=== PATIENT | female | born 1960 | race Hispanic/Latino ===

== ENCOUNTER → 2024-04-09 | Outpatient (CLI) | payer OTHER | LOC: M SOG 12:39 | PROVIDERS: ATTEND Neuromusculoskeletal Medicine, Sports Medicine | DX: M25.532 Pain in left wrist (principal); M25.531 Pain in right wrist ==

== ENCOUNTER 2024-05-13 06:07 | Day surgery (SDC) | payer OTHER ==
[~2024-05-13] VITALS: Ht 162.6 cm; Wt 83.6 kg
[~2024-05-13 06:07] MED LIST: ALBU8.5H INH; ARMO1TAB PO; BUDE10.22 INH; CETI-24 PO; ELID1CRE11 TOP; EPIN0.3I11 IM; EZET10TA21 PO; HAIRTAB15 PO; HYDR12.55 PO; LIDO1PAD TOP; LORA-930 PO; PRAV10TA3 PO; REFR0.5D8 OU; TELM1TAB35 PO; THERTAB52 PO; TIRZ5PEN SC; XALA0.007 OU
[2024-05-13] MEDS ORDERED: LR 1,000 ML IV SCH (06:20)
[2024-05-13] MEDS ORDERED: propofoL 200 MG/20 ML VIAL As Ordered ONE (06:52)
[2024-05-13] MEDS ORDERED: ONDANSETRON 4MG 2ML VIAL As Ordered ONE (06:52)
[2024-05-13] MEDS ORDERED: KETOROLAC 30 MG/ML 1ML VIAL As Ordered ONE (06:52)
[2024-05-13] MEDS ORDERED: LIDOCAINE 2% 100MG/5ML SDV (FOR ANES.) As Ordered ONE (06:52)
[2024-05-13] MEDS ORDERED: fentaNYL 100 MCG/2 ML INJECTION As Ordered ONE (06:59)
[2024-05-13] MEDS ORDERED: MIDAZOLAM INJ 2MG/2ML VIAL As Ordered ONE (07:00)
[2024-05-13] MEDS ORDERED: ceFAZolin SODIUM 2 GM VIAL As Ordered ONE (07:35)
[2024-05-13] MEDS: ceFAZolin SOD 2 GM IV ONCE IV ONE (07:41)
[2024-05-13] MEDS ORDERED: ACETAMINOPHEN 1000MG/100ML IV BAG As Ordered ONE (07:44)
[2024-05-13 08:14] VITALS: BP 114/58; TEMP 96.6; O2SAT 94
[2024-05-13] MEDS ORDERED: SUZE50TA PO (08:24)
== END 2024-05-13 08:50 | disposition home or self-care (01) ==
LOC: M SDC 06:07
PROVIDERS: ATTEND Neuromusculoskeletal Medicine, Sports Medicine
DX: G56.01 Carpal tunnel syndrome, right upper limb (principal); I10 Essential (primary) hypertension; E11.9 Type 2 diabetes mellitus without complications; E78.5 Hyperlipidemia, unspecified; E03.9 Hypothyroidism, unspecified; K21.9 Gastro-esophageal reflux disease without esophagitis; F41.9 Anxiety disorder, unspecified; F32.A Depression, unspecified; F43.10 Post-traumatic stress disorder, unspecified; Z79.51 Long term (current) use of inhaled steroids; Z79.899 Other long term (current) drug therapy; J45.909 Unspecified asthma, uncomplicated; Z88.0 Allergy status to penicillin; Z88.5 Allergy status to narcotic agent; Z88.8 Allergy status to other drugs, medicaments and biological substances
CPT/HCPCS: 64721; 93005; J0665; J0690; J1100; J1885; J2250; J2405; J3010

== ENCOUNTER 2024-05-27 06:06 | Day surgery (SDC) | payer OTHER ==
[~2024-05-27] VITALS: Ht 162.6 cm; Wt 86.2 kg
[~2024-05-27 06:06] MED LIST changes: +SUZE50TA PO
[2024-05-27] MEDS ORDERED: LIDOCAINE 2% 100MG/5ML SDV (FOR ANES.) As Ordered ONE (06:11)
[2024-05-27] MEDS ORDERED: propofoL 200 MG/20 ML VIAL As Ordered ONE (06:11)
[2024-05-27] MEDS ORDERED: MIDAZOLAM INJ 2MG/2ML VIAL As Ordered ONE (06:12)
[2024-05-27] MEDS ORDERED: KETOROLAC 30 MG/ML 1ML VIAL As Ordered ONE (06:14)
[2024-05-27] MEDS ORDERED: ONDANSETRON 4MG 2ML VIAL As Ordered ONE (06:14)
[2024-05-27] MEDS ORDERED: SYNT50TA PO (06:43)
[2024-05-27] MEDS: LR 1,000 ML IV SCH (07:06)
[2024-05-27] MEDS ORDERED: fentaNYL 100 MCG/2 ML INJECTION As Ordered ONE (07:18)
[2024-05-27] MEDS ORDERED: GLYCOPYRROLATE INJ 0.2 MG/ML 2 ML VIAL As Ordered ONE (07:20)
[2024-05-27] MEDS: ceFAZolin SODIUM 2 GM in DEXTROSE 5% (D5W) ADV/MINI-BAG 50 ML IV ONE (07:39)
[2024-05-27] MEDS ORDERED: ACETAMINOPHEN 1000MG/100ML IV BAG As Ordered ONE (07:48)
[2024-05-27] MEDS ORDERED: ePHEDrine SULFATE 25 MG/5 ML(5MG/ML) SYRINGE As Ordered ONE (07:50)
[2024-05-27] MEDS: LIDOCAINE 1% SDV 30ML VIAL As Ordered ONE (08:03)
[2024-05-27] MEDS ORDERED: HYDROMORPHONE HCL 0.5 MG/ 0.5 ML SYRINGE IV PRN (08:15)
[2024-05-27] MEDS ORDERED: fentaNYL 100 MCG/2 ML INJECTION IV PRN (08:15)
[2024-05-27] MEDS ORDERED: LR 1,000 ML IV SCH (08:15)
[2024-05-27] MEDS ORDERED: ONDANSETRON 4MG 2ML VIAL IV PRN (08:15)
[2024-05-27] MEDS ORDERED: oxyCODONE 5MG TAB PO PRN (08:15)
[2024-05-27 09:11] VITALS: BP 129/58; TEMP 97.5; O2SAT 92
== END 2024-05-27 09:30 | disposition home or self-care (01) ==
LOC: M SDC 06:06
PROVIDERS: ATTEND Neuromusculoskeletal Medicine, Sports Medicine
DX: G56.02 Carpal tunnel syndrome, left upper limb (principal); I10 Essential (primary) hypertension; E11.9 Type 2 diabetes mellitus without complications; E78.5 Hyperlipidemia, unspecified; J45.909 Unspecified asthma, uncomplicated; F41.9 Anxiety disorder, unspecified; F32.A Depression, unspecified; F43.10 Post-traumatic stress disorder, unspecified; E03.9 Hypothyroidism, unspecified; K21.9 Gastro-esophageal reflux disease without esophagitis; G47.33 Obstructive sleep apnea (adult) (pediatric); Z79.51 Long term (current) use of inhaled steroids; Z79.899 Other long term (current) drug therapy; Z88.5 Allergy status to narcotic agent; Z88.1 Allergy status to other antibiotic agents; Z88.8 Allergy status to other drugs, medicaments and biological substances
CPT/HCPCS: 64721; J0131; J0690; J1100; J1596; J1885; J2250; J2405; J3010

== ENCOUNTER → 2024-12-01 | Outpatient (CLI) | payer OTHER ==
[~2024-12-01] MED LIST changes: -EZET10TA21 PO; +EZET10TA57 PO; -PRAV10TA3 PO; +PRAV10TA43 PO; +SYNT50TA PO
== END ==
LOC: M SOG 07:24
PROVIDERS: ATTEND Neuromusculoskeletal Medicine, Sports Medicine
DX: M25.541 Pain in joints of right hand (principal); M25.542 Pain in joints of left hand; M19.041 Primary osteoarthritis, right hand; M19.042 Primary osteoarthritis, left hand

== ENCOUNTER → 2024-12-03 | Outpatient (CLI) | payer OTHER | LOC: M PLAIMG 08:55 | PROVIDERS: ATTEND Physician Assistant | DX: J32.8 Other chronic sinusitis (principal) ==

== ENCOUNTER 2024-12-16 11:15 | Day surgery (SDC) | payer OTHER ==
[~2024-12-16] VITALS: Ht 162.6 cm; Wt 81.2 kg
[~2024-12-16 11:15] MED LIST changes: +ESTR62CR TOP; +FLON27.5; +LEVOTAB10 PO; +TIRZ7.5P SC
[2024-12-16] MEDS ORDERED: ONDANSETRON 4MG/2ML VIAL As Ordered ONE (11:25)
[2024-12-16] MEDS ORDERED: LIDOCAINE 2% 100 MG/5 ML SDV (FOR ANES.) As Ordered ONE (11:25)
[2024-12-16] MEDS ORDERED: dexAMETHasone 4 MG/ML 1 ML VIAL As Ordered ONE (11:25)
[2024-12-16] MEDS ORDERED: MIDAZOLAM INJ 2 MG/2 ML VIAL As Ordered ONE (11:29)
[2024-12-16] MEDS ORDERED: LR 1,000 ML IV SCH ×2 (11:35→13:55)
[2024-12-16] MEDS: ceFAZolin SODIUM 2 GM in DEXTROSE 5% (D5W) ADV/MINI-BAG 50 ML IV ONE (12:52)
[2024-12-16] MEDS ORDERED: ROCURONIUM BROMIDE 50MG/5ML VIAL As Ordered ONE (12:58)
[2024-12-16] MEDS ORDERED: SUGAMMADEX SODIUM 500 MG/5 ML VIAL As Ordered ONE (13:06)
[2024-12-16] MEDS ORDERED: ACETAMINOPHEN 1000MG/100ML IV BAG As Ordered ONE (13:12)
[2024-12-16] MEDS ORDERED: ALBUTEROL 6.7 GM INHALER **FOR ANES. CART/OMNICELL ONLY As Ordered ONE (13:19)
[2024-12-16] MEDS: LIDOCAINE 1% MDV 20 ML VIAL As Ordered ONE (13:20)
[2024-12-16] MEDS ORDERED: ONDANSETRON 4MG/2ML VIAL IV PRN (13:55)
[2024-12-16] MEDS ORDERED: HYDROMORPHONE HCL 0.5 MG/0.5 ML SYRINGE IV PRN (13:55)
[2024-12-16 14:53] VITALS: BP 112/60; TEMP 97.5; O2SAT 97
== END 2024-12-16 14:59 | disposition home or self-care (01) ==
LOC: M SDC 11:15
PROVIDERS: ATTEND Neuromusculoskeletal Medicine, Sports Medicine
DX: M65.311 Trigger thumb, right thumb (principal); M65.341 Trigger finger, right ring finger; E11.9 Type 2 diabetes mellitus without complications; I10 Essential (primary) hypertension; E03.9 Hypothyroidism, unspecified; E78.00 Pure hypercholesterolemia, unspecified; Z79.890 Hormone replacement therapy; Z79.85 Long-term (current) use of injectable non-insulin antidiabetic drugs; Z79.899 Other long term (current) drug therapy; G47.30 Sleep apnea, unspecified; Z90.710 Acquired absence of both cervix and uterus; Z88.8 Allergy status to other drugs, medicaments and biological substances; Z88.5 Allergy status to narcotic agent; Z88.1 Allergy status to other antibiotic agents; Z87.891 Personal history of nicotine dependence
CPT/HCPCS: 26055; J0131; J0688; J1100; J2250; J2405; J3010

== ENCOUNTER 2024-12-30 09:34 | Day surgery (SDC) | payer OTHER ==
[~2024-12-30] VITALS: Ht 162.6 cm; Wt 82.8 kg
[2024-12-30] MEDS: LR 1,000 ML IV SCH (10:25)
[2024-12-30] MEDS ORDERED: LIDOCAINE 2% 100 MG/5 ML SDV (FOR ANES.) As Ordered ONE (13:30)
[2024-12-30] MEDS: ceFAZolin SOD 2 GM IV ONCE IV ONE (14:28)
[2024-12-30] MEDS: LIDOCAINE 1% SDV 30 ML VIAL As Ordered ONE (14:28)
[2024-12-30 15:05] VITALS: BP 128/62; TEMP 97.5; O2SAT 97
== END 2024-12-30 15:13 | disposition home or self-care (01) ==
LOC: M SDC 09:34
PROVIDERS: ATTEND Neuromusculoskeletal Medicine, Sports Medicine
DX: M65.312 Trigger thumb, left thumb (principal); E11.9 Type 2 diabetes mellitus without complications; I10 Essential (primary) hypertension; E03.9 Hypothyroidism, unspecified; J45.909 Unspecified asthma, uncomplicated; E78.00 Pure hypercholesterolemia, unspecified; K21.9 Gastro-esophageal reflux disease without esophagitis; G47.30 Sleep apnea, unspecified; Z79.85 Long-term (current) use of injectable non-insulin antidiabetic drugs; Z79.890 Hormone replacement therapy; Z79.899 Other long term (current) drug therapy; Z90.710 Acquired absence of both cervix and uterus; Z88.8 Allergy status to other drugs, medicaments and biological substances; Z88.5 Allergy status to narcotic agent; Z87.891 Personal history of nicotine dependence
CPT/HCPCS: 26055; J0688; J3010